=== PATIENT | female | born 1955 | race Caucasian/White ===

== ENCOUNTER 2018-08-11 12:54 | Outpatient (CLI) | payer MEDICARE, OTHER | END 2018-08-11 12:55 | disposition short-term general hospital (02) | LOC: EMS 12:54 | PROVIDERS: ATTEND Surgery | DX: R42 Dizziness and giddiness (principal) | CPT/HCPCS: A0425; A0429 ==

== ENCOUNTER 2020-12-20 18:30 | Emergency (ER) | payer MEDICARE, OTHER ==
[2020-12-20] MEDS ORDERED: SODIUM CHLORIDE 0.9% 1,000 ML IV STA ×2 (18:58→20:54)
[2020-12-20 19:09] LABS: BASOPHILS % (AUTO) 0.7 %; EOSINOPHILS # (AUTO) 0.1 10^3/uL (0.0-0.7); EOSINOPHILS % (AUTO) 1.8 %; HCT - HEMATOCRIT 40.7 % (37.0-47.0); HGB - HEMOGLOBIN 13.1 g/dL (12.0-16.0); LYMPHOCYTES # (AUTO) 1.8 10^3/uL (1.5-3.5); LYMPHOCYTES % (AUTO) 29.6 %; MEAN CORPUSCULAR HEMOGLOBIN 29.5 pg (27.0-31.0); MEAN CORPUSCULAR HGB CONC 32.2 g/dL (32.0-36.0); MEAN CORPUSCULAR VOLUME 91.7 fL (81.0-99.0); MEAN PLATELET VOLUME 7.8 fL (7.9-10.8); MONOCYTES # (AUTO) 0.5 10^3/uL (0.0-1.0); MONOCYTES % (AUTO) 8.1 %; NEUTROPHILS # (AUTO) 3.6 10^3/uL (1.5-6.6); NEUTROPHILS % (AUTO) 59.6 %; PLT - PLATELET COUNT 173 10^3/uL (130-450); RED BLOOD COUNT 4.44 10^6/uL (4.20-5.40); RED CELL DISTRIBUTION WIDTH 13.2 % (12.0-15.0); WHITE BLOOD COUNT 6.1 x10^3/uL (4.8-10.8)
[2020-12-20 19:22] LABS: ALBUMIN 4.2 g/dL (3.2-5.5); BILIRUBIN,TOTAL 0.3 mg/dL (0.2-1.0); CREATININE 0.6 mg/dL (0.4-1.0); POTASSIUM 4.1 mmol/L (3.5-5.0); TOTAL PROTEIN 8.3 g/dL (6.7-8.2)
[2020-12-20 19:48] LABS: BILIRUBIN,URINE NEGATIVE (NEGATIVE); GLUCOSE, URINE (UA) NEGATIVE (NEGATIVE); KETONES,URINE (UA) NEGATIVE (NEGATIVE); LEUKOCYTE ESTERASE, URINE NEGATIVE (NEGATIVE); NITRITE,URINE NEGATIVE (NEGATIVE); OCCULT BLOOD,URINE TRACE-INTA (NEGATIVE); PH,URINE 7.5 PH (5.0-7.5); PROTEIN,URINE NEGATIVE (NEGATIVE); UROBILINOGEN,URINE 0.2 (NORMAL) E.U./dL (NORMAL)
[2020-12-20 19:50] LABS: CLARITY,URINE CLEAR (CLEAR)
[2020-12-20] MEDS ORDERED: HYDROmorphone 1 MG/ML CARPUJECT IVP STA (20:54)
--- NOTE | 2020-12-20 21:05 | ED Physician Documentation ---
History of Present Illness - Stated complaint Stated Complaint: DIARRHEA X 2 WEEKS - Chief complaint Chief Complaint: Abd Pain - History obtained from History obtained from: Patient - History of Present Illness Timing: How many weeks ago (2) - Additonal information Additional information: Patient is a 65-year-old female with esophageal and throat cancer. She has had diarrhea for the past 2 weeks. States that she is unable to leave the toilet at all secondary to profuse diarrhea. Has had multiple rounds of antibiotics due to recent surgeries. Is not currently on chemotherapy or radiation. Has a G- tube in place. She called her oncologist at [facility] who recommended she come in for stool culture and C. difficile testing. Also recommend she receive IV fluids. No fevers. No chills. Nothing makes it better or worse. Review of Systems Ten Systems: 10 systems reviewed and negative Constitutional: denies: Fever, Chills Nose: denies: Rhinorrhea / runny nose, Congestion Throat: denies: Sore throat Cardiac: denies: Chest pain / pressure Respiratory: denies: Cough GI: reports: Nausea, Diarrhea. denies: Vomiting Skin: denies: Rash Musculoskeletal: denies: Neck pain, Back pain Neurologic: denies: Headache PD PAST MEDICAL HISTORY - Past Medical History Past Medical History: Yes Other Past Medical History: Esophageal and throat cancer - Past Surgical History Past Surgical History: Yes Other past surgical history: Multiple head and neck surgeries related to her cancer. PEG tube - Allergies Allergies/Adverse Reactions: Allergies Allergy/AdvReac Type Severity Reaction Status Date / Time adhesive tape Allergy Rash Verified 12/20/20 18:38 - Living Situation Living Situation: reports: With family Living Arrangement: reports: At home - Social History Does the pt have substance abuse?: No - Family History Family history: reports: Non contributory PD ED PE NORMAL - Vitals Vital signs reviewed: Yes - General General: Alert and oriented X 3, No acute distress, Well developed/nourished - HEENT HEENT: PERRL, Other (dry lips and tongue) - Neck Neck: Supple, no meningeal sign - Cardiac Cardiac: RRR, Strong equal pulses - Respiratory Respiratory: No respiratory distress, Clear bilaterally - Abdomen Abdomen: Soft, Non tender, Non distended, Other (G-tube in place. No signs of infection) - Derm Derm: Warm and dry, No rash - Extremities Extremities: No edema, No calf tenderness / cord - Neuro Neuro: Alert and oriented X 3 - Psych Psych: Normal mood, Normal affect Results - Vitals Vitals: Vital Signs - 24 hr 12/20/20 12/20/20 18:38 21:06 Temperature 36.6 C Heart Rate 97 77 Respiratory 18 18 Rate Blood Pressure 177/91 H 182/88 H O2 Saturation 95 Oxygen O2 Source Room air - Labs Labs: Laboratory Tests 12/20/20 12/20/20 12/20/20 19:03 19:03 19:40 WBC 6.1 RBC 4.44 Hgb 13.1 Hct 40.7 MCV 91.7 MCH 29.5 MCHC 32.2 RDW 13.2 Plt Count 173 MPV 7.8 L Neut # (Auto) 3.6 Lymph # (Auto) 1.8 [place] # (Auto) 0.5 Eos # (Auto) 0.1 Baso # (Auto) 0.0 Absolute Nucleated RBC 0.00 Nucleated RBC % 0.0 Sodium 137 Potassium 4.1 Chloride 96 L Carbon Dioxide 28 Anion Gap 13.0 BUN 16 Creatinine 0.6 Estimated GFR (MDRD) 100 Glucose 83 Calcium 10.0 Total Bilirubin 0.3 AST 21 ALT 16 Alkaline Phosphatase 55 Total Protein 8.3 H Albumin 4.2 Globulin 4.1 Albumin/Globulin Ratio 1.0 Lipase 44 Urine Color YELLOW Urine Clarity CLEAR Urine pH 7.5 Ur Specific [place] 1.015 Urine Protein NEGATIVE Urine Glucose (UA) NEGATIVE Urine Ketones NEGATIVE Urine Occult Blood TRACE-INTA Urine Nitrite NEGATIVE Urine Bilirubin NEGATIVE Urine Urobilinogen 0.2 (NORMAL) Ur Leukocyte Esterase NEGATIVE Ur Microscopic Review NOT INDICATED Urine Culture Comments NOT INDICATED - Rads (name of study) CT abd/pelvis Radiology: Prelim report reviewed, EMP read contemporaneously, See rad report PD MEDICAL DECISION MAKING - ED course Complexity details: reviewed results, re-evaluated patient, considered differential, d/w patient ED course: Patient is a 65-year-old female with complicated head and neck cancer history and multiple recent antibiotics complaining of profuse frequent diarrhea. No acute findings on laboratory testing or CT scan. Awaiting stool sample for C. difficile and stool culture. If the C. difficile is positive, she will need to be treated for this, if not she will likely be able to be discharged home to follow-up with her oncologist at [facility]. Patient will be signed out to the oncoming emergency department physician. This document was made in part using voice recognition software. While efforts are made to proofread this document, sound alike and grammatical errors may occur. IMPRESSION: 1. Fluid in the small bowel consistent with enteritis. 2. No other acute or significant abnormality. Departure - Departure Clinical Impression: Dehydration Diarrhea Qualifiers: Diarrhea type: unspecified type Qualified Code(s): R19.7 - Diarrhea, unspecifie d Condition: Stable
[2020-12-20] MEDS ORDERED: IOVERSOL 320 100 ML VIAL IVP ONE ×2 (21:10→21:27)
--- NOTE | 2020-12-20 22:29 | CT Report ---
PROCEDURE: Abdomen/Pelvis W INDICATIONS: diffuse abd pain, diarrhea, esophageal cancer CONTRAST: IV CONTRAST: Optiray 320 ml: 100 PO CONTRAST: *NO PO CONTRAST TECHNIQUE: After the administration of 100 mL contrast, 5 mm thick sections acquired from the diaphragms to the symphysis. 5 mm thick coronal and sagittal reformats were acquired. For radiation dose reduction, t he following was used: automated exposure control, adjustment of mA and/or kV according to patient s ize. COMPARISON: None. FINDINGS: Image quality: Excellent. ABDOMEN: Lung bases: Lung bases are clear. Heart size is normal. Solid organs: Liver and spleen are normal in size and enhancement. Gallbladder contains a lamellate d gallstone. There is no gallbladder wall thickening or pericholecystic fluid. Biliary system is non dilated. Pancreas enhances normally. No adrenal nodules. Kidneys demonstrate normal size and enha ncement, without hydronephrosis. Peritoneum and bowel: The distal esophagus is normal. The stomach contains a G-tube. The small bowel has a normal caliber. The large bowel has diverticulosis of the sigmoid colon with no evidence of acu te diverticulitis. Nodes and vessels: No retroperitoneal or mesenteric adenopathy by size criteria. The aorta has ather osclerotic calcifications. There is fluid in the small bowel consistent with enteritis with no evidence of small bowel obstructi on. Miscellaneous: No ventral hernias. PELVIS: Genitourinary: Bladder wall thickness is normal. Miscellaneous: No inguinal hernias or adenopathy. Bones: Multilevel degenerative changes. No suspicious bony lesions. No vertebral body compression f ractures. IMPRESSION: 1. Fluid in the small bowel consistent with enteritis. 2. No other acute or significant abnormality. Reviewed by: Enrike Hope on 12/20/2020 10:27 PM [facility] Approved by: Enrike Hope on 12/20/2020 10:27 PM PST Station ID: [id number]
[2020-12-21 00:23] VITALS: BP 172/86
[2020-12-21] MEDS ORDERED: DIPHENOX/ATROPINE 2.5/0.025 MG TABLET PO STA (02:00)
--- NOTE | 2021-01-24 00:14 | ED Physician Documentation ---
ED Addendum - Addendum Addendum: 01/24/21 00:12 Received sign out from Dr. Baumann, pending stool sample for c.diff. She was eventually able to provide this sample, result is negative for c. diff. She is comfortable with d/c and is given dose of lomotil prior to discharge.
== END 2020-12-21 02:28 | disposition home or self-care (01) ==
LOC: ED 18:30
DX: R19.7 Diarrhea, unspecified (principal); E86.0 Dehydration; C15.9 Malignant neoplasm of esophagus, unspecified; C14.0 Malignant neoplasm of pharynx, unspecified
CPT/HCPCS: 36415; 74177; 80053; 81003; 81599; 83690; 85025; 87045; 87046; 87427; 87493; 96361; 96374; 99284; A9270; J1170; Q9967; 81001; 87086